=== PATIENT | female | born 1970 | race Caucasian/White ===

== ENCOUNTER 2020-08-08 11:06 | Outpatient (CLI) | payer OTHER, SELFPAY ==
[2020-08-08 11:30] LABS: Basophils Percent Auto 0.4 % (0.2-1.2); Eosinophils Absolute Auto 0.3 K/mm3 (0-0.3); Eosinophils Percent Auto 3.7 % (0-4.4); Hematocrit 43.2 % (37.0-47.0); Hemoglobin 13.9 g/dL (12.0-15.0); Immature Granulocyte Absolute 0.02 K/mm3 (0.00-0.031); Immature Granulocyte Percent A 0.2 % (0-0.5); Immature Reticulocyte Fraction 9.7 % (3.0-15.9); Lymphocytes Absolute Auto 1.98 K/mm3 (0.9-3.2); Lymphocytes Percent Auto 23.9 % (18.3-44.2); Mean Corpuscular HGB Conc 32.2 g/dl (32-36); Mean Corpuscular Hemoglobin 28.5 pg (26-34); Mean Corpuscular Volume 88.7 fl (80-100); Mean Platelet Volume 9.1 fl (7.4-10.4); Monocytes Absolute Auto 0.5 K/mm3 (0.1-0.6); Monocytes Percent Auto 5.4 % (2.6-8.5); Neutrophils Absolute Auto 5.5 K/mm3 (1.3-6.7); Neutrophils Percent Auto 66.4 % (45.5-73.1); Platelet Count Result 345 k/mm3 (150-375); Red Blood Count 4.87 M/mm3 (4.2-5.4); Red Cell Distribution Width 13.4 % (11.5-14.5); Reticulocyte Hemoglobin Conten 34.3 pg (28.2-35.7); Reticulocyte Percent 1.52 % (0.7-4.3); Reticulocytes Absolute 0.07 B/L (32.2-175.7); White Blood Count 8.3 K/mm3 (4.5-10.0)
[2020-08-08 12:36] LABS: Alanine Aminotransferase 25 U/L (4-35); Albumin Level 4.1 g/dL (3.5-5.1); Alkaline Phosphatase 71 U/L (38-126); Anion Gap 11 mmol/L (8-16); Aspartate Amino Transferase 27 U/L (14-36); Bilirubin,Total 0.2 mg/dL (0.2-1.3); Blood Urea Nitrogen 12 mg/dL (7-17); Calcium 9.5 mg/dL (8.4-10.2); Carbon Dioxide 24 mmol/L (22-30); Chloride 104 mmol/L (98-107); Estimated Glomerular Filt Rate > 60; Glucose 81 mg/dL (65-105); Iron 103 ug/dL (37-170); Sodium 139 mmol/L (137-145)
[2020-08-08 12:47] LABS: Percent Iron Saturation 25 % (20-50)
[2020-08-14 15:49] LABS: Methylmalonic Acid 168 nmol/L (87-318)
[2020-08-14 16:20] LABS: Soluble Transferrin Receptor 1.34 mg/L (0.76-1.76)
== END 2020-08-08 11:07 | disposition home or self-care (01) ==
PROVIDERS: Visit Provider Internal Medicine Hematology & Oncology
DX: D50.9 Iron deficiency anemia, unspecified (principal)
CPT/HCPCS: 36415; 80053; 82607; 82728; 83540; 83550; 83921; 84238; 85025; 85046

== ENCOUNTER 2023-12-08 09:18 | Outpatient (CLI) | payer OTHER, SELFPAY ==
--- NOTE | 2023-12-08 10:45 | NEURO_ITS ---
Impression: # Complains of pain in legs with high arches. # Normal Nerve Conduction Study except absent right sural nerve response. # Normal needle/EMG exam without neurogenic changes. # Clinical correlation recommended. Nerve Conduction Studies Anti Sensory Summary Table Stim Site NR Peak (ms) P-T Amp (?V) Site1 Site2 Delta-P (ms) Dist (cm) Nilay (m/s) Left Sup Fibular Anti Sensory (Ant Lat Mall) 14 cm 3.5 8.8 14 cm Ant Lat Mall 3.5 16.0 46 Right Sup Fibular Anti Sensory (Ant Lat Mall) 14 cm 3.2 9.5 14 cm Ant Lat Mall 3.2 16.0 50 Left Sural Anti Sensory (Lat Mall) Calf 3.8 4.5 Calf Lat Mall 3.8 16.0 42 Right Sural Anti Sensory (Lat Mall) NO RESPONSE Calf NR Calf Lat Mall 16.0 Motor Summary Table Stim Site NR Onset (ms) O-P Amp (mV) Site1 Site2 Delta-0 (ms) Dist (cm) Nilay (m/s) Left Peroneal Motor ([facility] Med) Ankle 4.8 1.3 Popit Ankle 8.2 41.0 50 Popit 13.0 1.7 Right Peroneal Motor ([facility] Med) Ankle 4.4 3.2 Popit Ankle 8.1 35.0 43 Popit 12.5 2.5 Left Tibial Motor (Abd [place]) Ankle 4.4 6.2 Knee Ankle 8.3 39.0 47 Knee 12.7 3.9 Right Tibial Motor (Abd [place]) Ankle 4.1 5.9 Knee Ankle 8.8 39.0 44 Knee 12.9 2.6 F Wave Studies NR F-Lat (ms) L-R F-Lat (ms) Left Peroneal (Mrkrs) (EDB) 54.49 0.53 Right Peroneal (Mrkrs) (EDB) 53.95 0.53 Left Tibial (Mrkrs) (Abd Hallucis) 54.55 0.45 Right Tibial (Mrkrs) (Abd Hallucis) 54.10 0.45 EMG Side Muscle Nerve Root Ins Act Fibs Amp Dur Recrt Comment Right AntTibialis Dp Br Fibular L4-5 Nml Nml Nml Nml Nml Right Gastroc Tibial S1-2 Nml Nml Nml Nml Nml Right Fibularis Long Sup Br Fibular L5-S1 Nml Nml Nml Nml Nml Right Flex Dig Long Tibial L5-S2 Nml Nml Nml Nml Nml Right Ext Dig Brev Dp Br Fibular L5, S1 Nml Nml Nml Nml Nml Left AntTibialis Dp Br Fibular L4-5 Nml Nml Nml Nml Nml Left Gastroc Tibial S1-2 Nml Nml Nml Nml Nml Left Fibularis Long Sup Br Fibular L5-S1 Nml Nml Nml Nml Nml Left Flex Dig Long Tibial L5-S2 Nml Nml Nml Nml Nml Left Ext Dig Brev Dp Br Fibular L5, S1 Nml Nml Nml Nml Nml MTDD
== END 2023-12-08 09:19 | disposition home or self-care (01) ==
LOC: ANHNEURO 09:20
PROVIDERS: Visit Provider Internal Medicine Infectious Disease
DX: G62.9 Polyneuropathy, unspecified (principal)
CPT/HCPCS: 95886; 95910